=== PATIENT | male | born 1950 | race Caucasian/White ===

== ENCOUNTER 2022-06-21 08:49 | Outpatient (CLI) | payer MEDICARE, OTHER, SELFPAY ==
[2022-06-21 11:50] LABS: Albumin* 4.4 g/dL (3.3-5.0); Chloride* 105 mmol/L (96-114)
[2022-06-21 11:51] LABS: Potassium* 4.4 mmol/L (3.6-5.1); Sodium* 138 mmol/L (135-149)
[2022-06-21 11:53] LABS: Aspartate Amino Transferase* 32 U/L (12-35); Bilirubin Total* 1.3 mg/dL (0.1-1.5); Carbon Dioxide* 26 mmol/L (20-32); Cholesterol* 184 mg/dL (90-199); Creatinine* 1.1 mg/dL (0.5-1.5); Estimated Glomerular Filt Rate 72 ml/min; Total Protein* 7.1 g/dL (6.0-8.3)
[2022-06-21 11:54] LABS: Alanine Aminotransferase* 20 U/L (4-50); Alkaline Phosphatase* 66 U/L (40-150); Blood Urea Nitrogen* 30 mg/dL (7-30); Calcium* 8.8 mg/dL (8.4-10.6); Glucose* 95 mg/dL (60-115); HDL Cholesterol* 58 mg/dL (>=40); LDL Cholesterol Calculated 109 mg/dL (<100); Triglycerides* 87 mg/dL (40-149)
[2022-06-21 12:25] LABS: PSA Screen* 5.99 ng/mL (0.10-4.00)
== END 2022-06-21 08:50 | disposition home or self-care (01) ==
PROVIDERS: PCP Family Medicine; Visit Provider Family Medicine
DX: Z00.00 Encounter for general adult medical examination without abnormal findings (principal); E78.5 Hyperlipidemia, unspecified; R35.1 Nocturia; Z12.5 Encounter for screening for malignant neoplasm of prostate
CPT/HCPCS: 80053; 80061; 84153

== ENCOUNTER 2023-04-15 09:47 | Emergency (ER) | payer MEDICARE, OTHER, SELFPAY ==
[2023-04-15 09:59] VITALS: BP 137/83; PULSE 50; RESP 18; TEMP 36.4; O2SAT 98; BMI 22.7
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
[2023-04-15] MEDS: TETANUS/DIPHTH/PERTUSSIS 0.5 ML SYRINGE IM (11:35)
== END 2023-04-15 11:45 | disposition home or self-care (01) ==
LOC: ED 11:36
PROVIDERS: Emergency Provider Family Medicine; PCP Family Medicine
DX: S51.812A Laceration without foreign body of left forearm, initial encounter (principal); S80.812A Abrasion, left lower leg, initial encounter; S60.417A Abrasion of left little finger, initial encounter; V19.9XXA Pedal cyclist (driver) (passenger) injured in unspecified traffic accident, initial encounter
CPT/HCPCS: 12001; 90471; 90715; 99283; 99284

== ENCOUNTER 2023-05-24 08:00 | Outpatient (CLI) | payer MEDICARE, OTHER, SELFPAY | END 2023-05-24 08:01 | disposition home or self-care (01) | PROVIDERS: PCP Family Medicine; Referring Provider Family Medicine; Visit Provider Family Medicine | DX: E78.5 Hyperlipidemia, unspecified (principal); Z12.5 Encounter for screening for malignant neoplasm of prostate | CPT/HCPCS: 80053; 80061; 84153 ==

== ENCOUNTER 2023-11-01 10:29 | Outpatient (CLI) | payer MEDICARE, OTHER, SELFPAY ==
[2023-11-01 11:00] LABS: Creatinine* 1.1 mg/dL (0.5-1.5); Estimated Glomerular Filt Rate 71 ml/min
--- NOTE | 2023-11-01 11:00 | CRLHL7_ITS ---
For Patients: As a result of the Century Cures Act, medical imaging exams and procedure reports are released immediately into your electronic medical record. You may view this report before your referring provider. If you have questions, please contact your health care provider. Indication: Malignant neoplasm prostate Technique: CT Abdomen/Pelvis w/ 77cc [id number] Please note that all CT scans at this facility use dose modulation, iterative reconstruction, and/or weight-based dosing when appropriate to reduce radiation dose to as low as reasonably achievable. Comparison: None Findings: Lung bases are clear. No pleural effusion. Subcentimeter hepatic cysts are present. Diffuse hepatic steatosis. No calcified gallstones. No biliary obstruction. The pancreas is normal. Normal spleen. Adrenal glands are within normal limits. Kidneys are normal. Atherosclerotic changes are present. No aneurysm. No adenopathy. Bladder normal. Prostate calcification is present. No pelvic or inguinal adenopathy. Prominence of the iliac venous structures considered incidental and possibly related to hypervolemia. 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 Degenerative disc disease L5-S1. No fracture. No sclerotic lesion. Impression: No evidence of metastatic disease. Please note that all CT scans at this facility use dose modulation, iterative reconstruction, and/or weight-based dosing when appropriate to reduce radiation dose to as low as reasonably achievable. Dictated by Mj Santana MD @ 11/01/2023 2:20:02 PM (Electronically Signed)
== END 2023-11-01 10:30 | disposition home or self-care (01) ==
LOC: CT 10:32
PROVIDERS: PCP Family Medicine; Visit Provider Urology
DX: C61 Malignant neoplasm of prostate (principal)
CPT/HCPCS: 36415; 74177; 82565; Q9967

== ENCOUNTER 2023-11-05 08:13 | Outpatient (CLI) | payer MEDICARE, OTHER, SELFPAY ==
--- NOTE | 2023-11-05 08:20 | CRLHL7_ITS ---
For Patients: As a result of the Century Cures Act, medical imaging exams and procedure reports are released immediately into your electronic medical record. You may view this report before your referring provider. If you have questions, please contact your health care provider. NM whole-body bone Scan: Technique: Nuclear medicine whole-body bone scan per protocol was obtained after the intravenous administration 26.8 millicuries technetium 99 M MDP. Clinical information: Prostate cancer Comparison: CT abdomen and pelvis November 01, 2023 Findings: No abnormal focal activity suspicious for metastatic bony disease is identified. Degenerative type uptake is present within the shoulders, sternoclavicular joints, cervical spine, lower lumbar spine, hips and knees. Posttraumatic versus degenerative changes are present at the base of the left great toe. There is normal renal and urinary bladder activity. There is no abnormal soft tissue uptake. Impression: No scintigraphic evidence of osteoblastic metastatic disease. Dictated by Jostin Russo MD @ 11/05/2023 6:24:30 PM (Electronically Signed)
== END 2023-11-05 08:14 | disposition home or self-care (01) ==
LOC: NM 08:15
PROVIDERS: PCP Family Medicine; Visit Provider Urology
DX: C61 Malignant neoplasm of prostate (principal)
CPT/HCPCS: 78306; A9503

== ENCOUNTER 2023-11-22 12:58 | Outpatient (CLI) | payer MEDICARE, OTHER, SELFPAY ==
[2023-11-22 14:04] LABS: PSA Diagnostic* 6.58 ng/mL (0.10-4.00)
== END 2023-11-22 12:59 | disposition home or self-care (01) ==
LOC: LAB 12:59
PROVIDERS: PCP Family Medicine; Visit Provider Physician Assistant
DX: C61 Malignant neoplasm of prostate (principal)
CPT/HCPCS: 36415; 84153

== ENCOUNTER 2024-03-02 10:39 | Outpatient (CLI) | payer MEDICARE, OTHER, SELFPAY | END 2024-03-02 10:40 | disposition home or self-care (01) | LOC: NFLDUCREF 10:40 | PROVIDERS: PCP Family Medicine; Visit Provider Registered Nurse | DX: R51.9 Headache, unspecified (principal) | CPT/HCPCS: 86618 ==

== ENCOUNTER 2024-08-26 08:25 | Outpatient (CLI) | payer MEDICARE, OTHER, SELFPAY ==
--- OUTSIDE RECORDS SUMMARY | 2024-08-26 08:31 | XMS_ITS | Clinical Summary ---
Author Organization [facility] Address [place], [place] [address] Care Team Providers Care Densitometer Reader Name Role Phone Eldon Patino MD Primary Care Provider [phone] Allergies No known active allergies Medications Medication Sig Dispensed Refills Start Date End Date Status coenzyme q10 50 mg capsule Take 50 mg by mouth once daily. Active multivitamins-iron tablet Take 1 Tablet by mouth once daily. Active omega 9-bdf-ctt-fish oil (Fish Oil) 100-160-1,000 mg cap Take 1 Capsule by mouth once daily. Active calcium carbonate-cholecalcif johnny, 600mg-200 units, (CALTRATE-600 + VIT D) tablet Take 1 Tablet by mouth once daily with a meal. Active rosuvastatin (Crestor) 10 mg tablet Take 10 mg by mouth at bedtime. Active Lactobacillus acidophilus (PROBIOTIC ORAL) Take 1 Capsule by mouth once daily. Active docusate (COLACE) 100 mg capsuleIndications:Pr ostate cancer (HC) Take 1 Capsule (100 mg) by mouth 2 times daily if needed for Constipation. 20 Capsule 01/01/2024 Active oxyCODONE (ROXICODONE) 5 mg immediate release tabletIndications:Pro state cancer (HC) Take 1 Tablet (5 mg) by mouth every 6 hours if needed for Pain. 10 Tablet 01/02/2024 Active Social History Tobacco Use Types Packs/Day Years Used Date Smoking Tobacco: Former Passive Smoke Exposure: Never Smokeless Tobacco: Never Tobacco Cessation:Counseling Given: Not Answered Alcohol Use Standard Drinks/Week Comments Yes 0 (1 standard drink = 0.6 oz pur e alcohol) 9 week Sex and Gender Information Value Date Recorded Sex Assigned at Not on file Gender Identity Not on file Sexual Orientation Not on file Obstetrics History Last Filed Vital Signs Vital Sign Reading Time Taken Comments Blood Pressure 113/56 01/02/2024 8:00 AM CDT Pulse 56 01/02/2024 8:00 AM CDT Temperature 36.6 ??C (97.9 ??F) 01/02/2024 8:00 AM CD T Respiratory Rate 14 01/02/2024 8:00 AM CDT Oxygen Saturation 95% 01/02/2024 8:00 AM CDT Inhaled Oxygen Concentration - - Weight 75.8 kg (167 lb) 01/02/2024 5:33 AM CDT Height 177.8 cm (5' 10) 01/01/2024 10:30 AM CDT Body Mass Index 23.96 01/01/2024 10:30 AM CDT Plan of Treatment Health Maintenance Due Date Last Done Comments Tdap 1962 Depression screening for age 12+ 1963 BMI (ht and wt on same day) for age 18+ 1969 Hepatitis C screening for ag e 18-79 1969 Tetanus booster 1971 Colonoscopy through age 75 1996 Lipids for age 45-75 1996 Zoster (shingles) series for age 50+ (1 of 2) 2001 AAA screening age 65-74 2016 Medicare Wellness for age 65+ 2016 Pneumococcal series for age 65+ (1 of 1 - PCV) 2016 COVID-19 vaccine series ( season) 2024 08/05/2023, 08/14/2022, 03/27/2022, Additional history exists Influenza for age 65+ 06/14/2024 Advance Directives * Full Code (Latest Code Status on File) Date Activated Date Inactivated Comments 01/01/2024 10:21 AM 01/02/2024 1:47 PM Question Answer Comments Code Status Discussion: Unable to Assess Preferences, Provider to review later Care Teams Densitometer Reader Relationship Specialty Start Date End Date Eldon Patino MD [address] [place] [address] PCP - General Family Practice 09/11/21
--- OUTSIDE RECORDS SUMMARY | 2024-08-26 08:32 | XMS_ITS ---
Author Organization [facility] Address [address] [place] [address] Care Team Providers Care Seed Collector Name Role Phone Unavailable Unavailable Unavailable Surgery Details Not on file Complications Check Surgery Details section. Procedure Estimated Blood Loss Check Surgery Details section. Procedure Findings Check Surgery Details section. Procedure Specimens Taken Check Surgery Details section.
--- OUTSIDE RECORDS SUMMARY | 2024-08-26 08:32 | XMS_ITS | Referral Summary ---
Author Organization [facility] Address [address] [place] [address] Care Team Providers Care Medical Transport Specialist Name Role Phone Unavailable Primary Care Provider Unavailabl e Source Comments Patient records contain information from all sites at [facility]. For routine questions regarding patient records, call [phone] during business hours, M-F 8:00 AM - 5:00 PM Central Time. Record requests for emergency care only can be directed to [phone] at any time.[facility] Allergies No known active allergies Medications calcium carbonate-vitam in D3 1,500 mg (600 mg calcium)-5 mcg (200 Unit) per tablet daily. Active DOCOSAHEXAENOIC ACID ORAL daily. Active tamsulosin (FLOMAX) 0.4 mg 24 hr capsule Take 1 capsule by mouth daily. 10/03/2023 Active rosuvastatin (CRESTOR) 10 mg tablet 10 MG ORALLY EVERY DAY 09/24/2023 Active co-enzyme Q-10 (CO Q-10) 50 mg capsule daily. Active Active Problems Problem Noted Date Diagnosed Date Primary Malignant Neoplasm Of Prostate Cancer Staging:Clinical stage from 10/16/2023:Stage IIB(cT2c, cN0, cM0, PSA: 5.8, Grade Group: 2) - Unsigned Immunizations Name Administration Dates Next Due Influenza, Unspecified 07/04/2009,09/10/2003 Social History Tobacco Use Types Packs/Day Years Used Date Smoking Tobacco: Never Smokeless Tobacco: Never Tobacco Cessation:Counseling Given: Not Answered Dental Answer Date Recorded Dental: Regular Dentist Unknown 11/13/19 Sex and Gender Information Value Date Recorded Sex Assigned at Not on file Legal Sex Male 9:23 AM PREANALYTICS TEAM LEAD Gender Identity Not on file Sexual Orientation Not on file Last Filed Vital Signs Vital Sign Reading Time Taken Comments Blood Pressure 126/64 11/21/2023 10:29 AM PREANALYTICS TEAM LEAD Pulse 53 11/21/2023 10:29 AM PREANALYTICS TEAM LEAD Temperature 36.4 ??C (97.5 ??F) 11/21/2023 1 0:29 AM PREANALYTICS TEAM LEAD Respiratory Rate - - Oxygen Saturation - - Inhaled Oxygen Concentration - - Weight 74.3 kg (163 lb 12.8 oz) 024 10:29 AM PREANALYTICS TEAM LEAD Height - - Body Mass Index - - Plan of Treatment Not on file Insurance [employer] MEDICARE
--- OUTSIDE RECORDS SUMMARY | 2024-08-26 08:32 | XMS_ITS | Clinical Summary ---
Author Organization [facility] Address [address] [place] [address] Care Team Providers Care Grounds Maintenance Worker Name Role Phone Unavailable Primary Care Provider Unavailabl e Source Comments Patient records contain information from all sites at [facility]. For routine questions regarding patient records, call [phone] during business hours, M-F 8:00 AM - 5:00 PM Central Time. Record requests for emergency care only can be directed to [phone] at any time.[facility] Allergies No known active allergies Medications calcium [...] Diagnosed Date Primary Malignant Neoplasm Of Prostate 4 Cancer Staging:Clinical stage from 10/16/2023:Stage IIB(cT2c, cN0, cM0, PSA: 5.8, Grade Group: 2) - Unsigned Immunizations Name Administration Dates Next Due Influenza, Unspecified 07/04/2009,09/10/2003 Family History Medical History Relation Name Comments Melanoma Father Stomach cancer Mother Breast cancer Sister Relation Name Status Comments Father Mother Sister Social History Tobacco Use Types Packs/Day Years Used Date Smoking Tobacco: Never Smokeless Tobacco: Never Tobacco Cessation:Counseling Given: Not Answered Dental Answer Date Recorded Dental: Regular Dentist Unknown 11/13/19 24 Sex and Gender Information Value Date Recorded Sex Assigned at Not on file Legal Sex Male 9:23 AM CNA PER DIEM Gender Identity Not on file Sexual Orientation Not on file Last Filed Vital Signs Vital Sign Reading Time Taken Comments Blood Pressure 126/64 11/21/2023 10:29 AM CNA PER DIEM Pulse 53 11/21/2023 10:29 AM CNA PER DIEM Temperature 36.4 ??C (97.5 ??F) 11/21/2023 1 0:29 AM CNA PER DIEM Respiratory Rate - - Oxygen Saturation - - Inhaled Oxygen Concentration - - Weight 74.3 kg (163 lb 12.8 oz) 024 10:29 AM CNA PER DIEM Height - - Body Mass Index - - Plan of Treatment Health Maintenance Due Date Last Done Comments CT Colonography 1950 Cologuard 1950 FIT 1950 Fasting Glucose for Diabetes Screening 1950 Hepatitis C Screening 1950 Colonoscopy 08/06/2012 08/06/2002 Colorectal Cancer Screening 08/06/2012 Depression Screening (Annual PHQ-2) 10/14/2023 Fall Risk Screen (Annual) 10/14/2023 COVID-19 Vaccine ( season) 2024 08/05/2023, 08/14/2022, 03/27/2022, Additional history exists Influenza Vaccine (#1) 2024 , 06/14/2022, 06/06/2021, Additional history exists DTaP,Tdap,and Td Vaccines (3 - Td or Tdap) 04/15/2033 04/15/2023, 10/17/2011 Pneumococcal vaccine (65+ years) Completed 02/25/2018, 10/25/2016 Zoster Vaccines Completed 06/28/2019, 04/02/2019 IPV Vaccines Aged Out No longer eligi ble based on patient's age to complete this topic Insurance [employer] MEDICARE
== END 2024-08-26 08:26 | disposition home or self-care (01) ==
PROVIDERS: PCP Family Medicine; Visit Provider Family Medicine
DX: Z00.00 Encounter for general adult medical examination without abnormal findings (principal); E78.5 Hyperlipidemia, unspecified; D50.9 Iron deficiency anemia, unspecified
CPT/HCPCS: 80053; 80061

== ENCOUNTER 2025-08-03 06:05 | Day surgery (SDC) | payer MEDICARE, OTHER, SELFPAY ==
[2025-08-03] VITALS (15 sets, daily range): BP systolic 81–141; BP diastolic 48–81; PULSE 40–70; RESP 11–16; TEMP 36.6–36.8; O2SAT 95–100; BMI 24.5
[2025-08-03] MEDS: SODIUM CHLORIDE 0.9 % (FLUSH) 10 ML SYRINGE IVF (06:39)
[2025-08-03] MEDS: LACTATED RINGERS 1000 ML 1,000 ML 100 ML IV ×3 (06:39→11:15)
[2025-08-03] MEDS: OXYCODONE (CR) 10 MG TAB.ER.12H PO (07:20)
[2025-08-03] MEDS: ACETAMINOPHEN 500 MG TABLET 1000 MG PO (07:20)
[2025-08-03] MEDS: CELECOXIB 200 MG CAPSULE PO (07:20)
[2025-08-03] MEDS: MIDAZOLAM HCL 1 MG/ML inj IVP (07:21)
--- NOTE | 2025-08-03 07:32 | SUR.PREOP ---
TIME?OUT:?0719 PT/RN/MDA?VERIFICATION?OF?SURGICAL?SITE,?PROCEDURE,?AND?CONSENT OBTAINED?PRIOR?TO?INVASIVE?PROCEDURE.
[2025-08-03] MEDS: TRANEXAMIC ACID 100 MG/ML INJ 1000 MG IV (07:43)
--- NOTE | 2025-08-03 08:47 | CRLHL7_ITS ---
For Patients: As a result of the Cures Act, medical imaging exams and procedure reports are released immediately into your electronic medical record. You may view this report before your referring provider. If you have questions, please contact your health care provider. Indication: Postop right TKA Technique: Two views right knee Findings/Impression: Hardware from a right total knee arthroplasty is in satisfactory position. Bone alignment is normal. No sign of acute fracture. Postop changes are within normal limits. Dictated by Mj Santana MD @ 08/03/2025 10:37:36 AM (Electronically Signed)
--- NOTE | 2025-08-03 08:50 | PM.ORPRC ---
Procedure Note Date of procedure: 08/03/25 Procedure: PREOPERATIVE DIAGNOSIS: Right knee osteoarthritis POSTOPERATIVE DIAGNOSIS: Right knee osteoarthritis NAME OF OPERATION: Right total knee arthroplasty SURGEON: Omar Sanchez MD RADIOLOGICAL TECHNOLOGIST: Lyudmila Peterson PA-C ANESTHESIA: Spinal ESTIMATED BLOOD LOSS: 0 mL COMPLICATIONS: None SPECIMENS: None DRAINS: None PREOPERATIVE ANTIBIOTICS: Ancef 2g IMPLANTS: 1. J&J Attune # 7 posterior stabilized femur 2. # 8 fixed-bearing tibia 3. # 7 posterior stabilized, 10 mm fixed-bearing polyethylene 4. 38 patella INDICATIONS: The patient is a 74-year-old with a longstanding history of severe, unrelenting right knee pain secondary to end-stage (grade IV) right knee osteoarthritis. Despite appropriate nonoperative management, including activity modification, anti-inflammatories, oxbl-rxz-vwhymxo pain medication, bracing, physical therapy, and injections they continue to have pain and disability. Operative intervention was offered. The risks, benefits and expected outcomes were discussed in detail. These included but were not limited to: Infection, bleeding, injury to blood vessel or nerve, venous thromboembolism. All questions were answered to their satisfaction. Use of an assistant manager of operations was necessary throughout the case for patient positioning and safety, soft tissue retraction, and closure. PROCEDURE: Spinal anesthesia was administered. The patient was placed supine on the operating table. The assistant manager of operations made sure the patient was positioned appropriately. The lower extremity was prepped and draped in the usual sterile fashion. The limb was exsanguinated with the Herb bandage. The pneumatic tourniquet was inflated to 225mmHg. A standard anterior incision was made with the knee in flexion. Subcutaneous dissection was sharply taken through fascial layer #1. Full-thickness medial and lateral flaps were elevated. The assistant manager of operations retracted the soft tissues and protected them throughout the case. A standard subvastus approach was made. The patella was subluxed. The infrapatellar fat pad was preserved. The menisci and cruciate ligaments were sharply d?brided. Marginal osteophytes were d?brided with the rongeur. The drill was used to penetrate the femoral canal. The intramedullary femoral guide was placed for a 5-degree valgus cut, removing 10 mm off the distal femur. The saw was used to make the cut. Whitesides line and the trans epicondylar axis were marked. The femoral sizing guide was pinned onto the distal femur. Three degrees of external rotation nicely parallels the transepicondylar axis. Pins were placed for posterior referencing. The four-in-one cutting guide was pinned onto the distal femur. The anterior, posterior, and chamfer cuts were made. The assistant manager of operations protected the collateral ligaments. The box cutting guide was pinned. The box cuts were made. The boxed trial was placed and was an excellent fit. Drill holes for the lugs were made. Attention was then turned to the proximal tibia. The intramedullary tibial guide was placed for a neutral varus/valgus cut with 5 Degrees of posterior slope, removing 2 mm based off the medial tibial surface. The assistant manager of operations protected the collateral ligaments and the neurovascular bundle. The saw was used to make the cut. Trial components were placed. The knee was nicely balanced in both flexion and extension. The trial components were removed. The tray was placed in appropriate rotation, parallel to our tibial cutting pins. It was pinned by the assistant manager of operations and the drill and the punch were used. The tray was removed. The punch was used again. We placed a bone plug in the femoral canal. Attention was then turned to the patella. [place] patellar thickness was 26.5 mm. The lobster claw resection guide was used with the 9.5 mm fallon. The saw was used to make the cut. Drill holes were made by the assistant manager of operations. The trial was placed and was an excellent fit. Cancellous surfaces were irrigated with pulse lavage and thoroughly dried by the assistant manager of operations. We cemented the tibial component, then the femoral component. We impacted the 10 mm polyethylene onto the tibial tray. The knee was brought into full extension. We then cemented the patellar component. Excessive cement was removed. The cement was allowed to harden. The knee was taken through a range of motion and was found to be nicely balanced in both flexion and extension. The patella tracks centrally. The assistant manager of operations did a three minute dilute Betadine solution soak. The assistant manager of operations irrigated the wound with 3 liters of normal saline via pulse lavage. The assistant manager of operations reapproximated the extensor mechanism with #1 Vicryl in an interrupted rlobdw-ze-ossaa fashion. The assistant manager of operations then ran the extensor mechanism with a #1 PDO Stratafix. The assistant manager of operations closed the subcutaneous tissues with a 3-0 Stratafix and the skin with a running 3-0 Stratafix in a subcuticular fashion. The assistant manager of operations placed a dry dressing. Sponge and needle counts were correct x2. The patient tolerated the procedure well. There were no apparent complications. They were carefully transferred to the hospital bed and taken to the postanesthesia care unit in satisfactory condition. PLAN: The patient will be mobilized with physical therapy. Aspirin will be used for DVT prophylaxis. They will be discharged to home once medically appropriate.
--- NOTE | 2025-08-03 08:52 | P.ANES_ITS ---
Anesthesia Charges Start Date/Time Anesthesia Start Date: 08/03/25 Anesthesia Start Time: 07:28 Stop Date/Time Anesthesia Stop Date: 08/03/25 Anesthesia Stop Time: 09:41 Summary Extremes of Age - Over 70 or under 1: MDA Coding CPT Codes CPT Codes: ANESTH KNEE ARTHROPLASTY - 31104 ([id number]) P1 - NORMAL HEALTHY PATIENT, QK - SLEEP LAB TECHNOLOGIST 2-4 CNCRNT ANES PROC, QX - LICENSED MIDWIFE SVC W/ MD MED DIRECTION Additional Codes: Summary - Extremes of Age - Over 70 or under 1: MDA ([id number])
--- NOTE | 2025-08-03 08:52 | P.NB_ITS ---
Nerve Block Nerve Block Time Seen by Provider: 07:19 Date Seen: 08/03/25 Type of block requested by surgeon for post-operative analgesia: adductor canal Side: right Time out performed: Yes Verification of patient name: Yes Verification of date of : Yes Site marking: site marked Name of person performing procedure: Juan Francisco Continuous monitoring Was continuous monitoring of O2 sat, B/P, monitoring coordinator, recorded every 15 minutes?: Yes Procedure Checklist: sterile prep, needles and gloves Ultrasound guided. Images saved: Yes Medications given in 5ml increments after negative aspiration: Marcaine %: 0.25 mL: 15 Needle gauge: 20 Precedex (mcg): 25 Patient tolerated procedure well: Yes Block Charges Block Charge (with Pro Fee): Femoral Nerve Use of Ultrasound Machine for Block: Yes- US Guidance/pain block
--- NOTE | 2025-08-03 08:52 | P.NB_ITS ---
Nerve Block Nerve Block Time Seen by Provider: 07:19 Date Seen: 08/03/25 Type of block requested by surgeon for post-operative analgesia: geniculars Side: right Time out performed: Yes Verification of patient name: Yes Verification of date of : Yes Site marking: site marked Name of person performing procedure: Juan Francisco Continuous monitoring Was continuous monitoring of O2 sat, B/P, monitoring analyst, recorded every 15 minutes?: Yes Procedure Checklist: sterile prep, needles and gloves Ultrasound guided. Images saved: Yes Medications given in 5ml increments after negative aspiration: Marcaine %: 0.25 mL: 9 Needle gauge: 25 Patient tolerated procedure well: Yes Block Charges Block Charge (with Pro Fee): Genicular Nerve Block
--- NOTE | 2025-08-03 08:52 | W.ANESCHARGE ---
Anesthesia Charges Start Date/Time Anesthesia Start Date: 08/03/25 Anesthesia Start Time: 07:28 Stop Date/Time Anesthesia Stop Date: 08/03/25 Anesthesia Stop Time: 09:41 Summary Extremes of Age - Over 70 or under 1: MDA Coding CPT Codes CPT Codes: ANESTH KNEE ARTHROPLASTY - 36803 ([id number]) P1 - NORMAL HEALTHY PATIENT, QK - TECHNICAL PROPOSAL WRITER 2-4 CNCRNT ANES PROC, QX - TREATING AND PUMPING SUPERVISOR SVC W/ MD MED DIRECTION Additional Codes: Summary - Extremes of Age - Over 70 or under 1: MDA ([id number])
--- NOTE | 2025-08-03 09:41 | P.ANES_ITS ---
Anesthesia Charges Start Date/Time Anesthesia Start Date: 08/03/25 Anesthesia Start Time: 07:28 Stop Date/Time Anesthesia Stop Date: 08/03/25 Anesthesia Stop Time: 09:41 Coding CPT Codes CPT Codes: ANESTH KNEE ARTHROPLASTY - 06924 ([id number]) P1 - NORMAL HEALTHY PATIENT, QK - SINK CUTTER 2-4 CNCRNT ASTER PROC, QX - RESUME SPECIALIST SVKris W/ MED DIRECTION
--- NOTE | 2025-08-03 09:41 | W.ANESCHARGE ---
Anesthesia Charges Start Date/Time Anesthesia Start Date: 08/03/25 Anesthesia Start Time: 07:28 Stop Date/Time Anesthesia Stop Date: 08/03/25 Anesthesia Stop Time: 09:41 Coding CPT Codes CPT Codes: ANESTH KNEE ARTHROPLASTY - 72053 ([id number]) P1 - NORMAL HEALTHY PATIENT, QK - DEHYDRATOR 2-4 CNCRNT ASTER PROC, QX - COMPRESSOR MECHANIC BUS SVKris W/ MED DIRECTION
== END 2025-08-03 13:18 | disposition home or self-care (01) ==
LOC: OR 06:06
PROVIDERS: PCP Family Medicine; Visit Provider Orthopaedic Surgery
PROC: (CPT 27447; principal; 2025-08-03 07:15)
DX: M17.11 Unilateral primary osteoarthritis, right knee (principal); G89.18 Other acute postprocedural pain
CPT/HCPCS: 27447; 01402; 64447; 64454; 73560; 76942; 97110; 97116; 97162; 99100; A9270; C1776; J0665; J0690; J2250; J2405; J2704; J3010; J7120

== ENCOUNTER 2025-09-16 10:00 | Outpatient (RCR) | payer MEDICARE, OTHER, SELFPAY ==
--- NOTE | 2025-08-06 15:00 | PT.OPEX ---
PT [place] Outpatient Eval PT [facility] Outpatient Eval Start: 08/06/25 12:55 Freq: Status: Active Protocol: Document 08/06/25 12:56 HLA (Rec: 08/06/25 14:56 HLA [id number]) E-signed By Manisha Hwang, PT, DPT Physical Therapy Outpatient Evaluation Insurance Information Recert Due Date 11/03/25 Insurance Name Medicare B,[employer] Medical Diagnosis R TKA Treating Diagnosis weakness, difficulty amb, pain, impaired ROM after R TKA Referring MD Sanchez Subjective Preferred Name Ezra Subjective Severe pain after surgery, did call Dr. Sanchez for med adjustment, still quite high, hasn't done his ex. States he had limited ROM prior to surgery, lacked end range flex/ext. 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 Pain Comments moderate R knee Date of Last 08/03/25 Physician Visit Date of Surgery (If 08/03/25 applicable) Precautions Weight Bearing Weight Bear as Tolerated Status Therapy Limitations/ Not Limited Systems Review Objective Range of Motion UEs WNL L LE WNL R LE except knee 10-80 AAROM by end of session Strength UEs 5/5 L LE 5/5 R hip 5-/5 R knee 3+/5 R ankle 4+/5 Swelling circumference 55 cm at 10 cm proximal to patella 45 cm mid patella 41 cm 10 cm distal to patella Balance & Gait Gait initially on toes R LE, flexed knee, lacking heel toe patterning, heavy wt through UEs on walker. Improved to heel toe gt by end of session, mod wt UEs on walker Stairs step to used walker at home threshold entry Balance fair with walker Posture transfers: sit<>stand sba sit<>supine uses UEs to lift R LE on/off bed pivots cga with walker car min/mod assist Sensation/Reflexes intact to light touch Other/Pertinent 55 cm at 10 cm proximal to patella Objective 45 cm mid patella 41 cm 10 cm distal to patella Functional Test LEFS 13/80 or 16/3 % Performed & Score Assessment Assessment/ Ezra is a 75 year old male with hx of OA and prostate Impression cancer who underwent same day R TKA with Dr. Sanchez on . He returned home with his spouse's support, home is multi-level, 2 step entry. Currently on main floor of the home only. He had severe pain after surgery, resolving a bit now but has not done his ex. Was a triathlete/marathoner and enjoyed biking, active lifestyle until his knee pain progressed. Today pt presents with pain R knee 5/10, AAROM 10-80 degrees. Gt is slow, stiff, improved with cues and education using ww. Therapist instructed pt in positioning, use of ice , activity level, bed mobility, transfers, gt with walker, stairs and car transfers today. Pt performed quad sets, ham sets, APs, HS with strap, SAQ, seated knee flex, LAQ with strap, 10 reps. Pt to do ex 3x/day x 10 reps. HS stretch seated, supine heel prop to promote knee ext, 3 min. Pt to do this stretch 3x/day. Instructed in use of ice, positioning, activity level, safety, fall prevention. Patient presents with edema, pain surgical leg, impaired ROM, impaired strength, impaired transfers and impaired ambulation. PT twice weekly is indicated to help him regain full AROM and strength R knee, return to community distance amb and leisure activities. Primary Functional impaired ROM, strength, balance, gt. Limitations pain, fall risk Plan of Care Rehabilitation Good Potential Physical Therapy Within 10-12 weeks: Goals 1. Pt will have knee AROM 0-120 degrees for transfers, ADLs, and stairs independence. 2. Pt will amb 20 min with se cane or no device as indicated, safely and independently for community and household ambulation. 3. Pt will be independent in home ex program for ocean transportation intermediary pain management and to promote independence and to decrease fall risk. 4. Pt will ascend/descend 13 stairs with railing independently for community mobility. Coordination/ Referral Source,Patient Caregiver,Employer,Network Engineer AdministratorConfiguration Management Manager With (QRC) Treatment Plan/ Dry Needling,Electrical Stimulation,Gait Training,Ice/ Direct Interventions Cold/Vasopneumatic,Iontophoresis,Joint Mobilization, Manual Therapy,Neuromuscular Re-ed,Orthotics/Braces, Self-Care/Home Management,Therapeutic Activities, Traction (Mechanical) Patient Will Be Completion of LTG(s),Skills Plateau,Independent w/HEP, Discharged From Independently Progressing Therapy Evaluation Billing Untimed Code 24 Treatment Minutes PT Eval No Charge No Complexity Low Certification Information Initial 08/06/25 Certification Date Ending Certification 11/03/25 Date Provider Signature Yes Required Provider Signature POC & Medical Necessity Shows Agreement With Physician NPI Number Write NPI# Here Physician Comment/ : Change Physician Signature Please Sign/Date Here & Date Requested
== END 2025-09-16 16:23 | disposition home or self-care (01) ==
PROVIDERS: PCP Family Medicine; Visit Provider Orthopaedic Surgery
DX: Z47.1 Aftercare following joint replacement surgery (principal); Z96.651 Presence of right artificial knee joint; Z51.89 Encounter for other specified aftercare
CPT/HCPCS: 97110; 97116; 97140; 97161; A9270; J2250; J3010

== ENCOUNTER 2025-09-17 07:30 | Outpatient (CLI) | payer MEDICARE, OTHER, SELFPAY | END 2025-09-17 07:31 | disposition home or self-care (01) | LOC: NFLDREF 09-22 09:05 | PROVIDERS: PCP Family Medicine; Referring Provider Family Medicine; Visit Provider Family Medicine | DX: E78.5 Hyperlipidemia, unspecified (principal) | CPT/HCPCS: 80053; 80061 ==